=== PATIENT | male | born 1955 | race Caucasian/White ===

== ENCOUNTER 2020-11-09 22:13 | Emergency (ER) | payer BC ==
--- NOTE | 2020-11-09 23:28 | EDM.PDOC ---
ED HPI GENERAL MEDICAL PROBLEM - General Chief Complaint: Abdominal Pain Stated Complaint: OBSTRUCTED BOWEL Time Seen by Provider: 11/09/20 23:10 Source of Information: Reports: Patient, Family () History Limitations: Reports: No Limitations - History of Present Illness INITIAL COMMENTS - FREE TEXT/NARRATIVE: chief complaint: abdominal pain and back pain This is a 64 year old male presents to the ER with abdominal pain- the pain is constant and severe. reports having rock hard stool, today took Dulcolax 5 pills and one enema - nothing working. He called his Family Doctor who advise to go to ER and be scanned to rule out obstruction or diverticulitis. PMHX- chronic low back pain, appy in 1979, pre-diabetes, tobacco use Primary Care Provider- Dr. Balderas, [place], [place] Onset: Today Duration: Hour(s):, Constant, Getting Worse Location: Reports: Abdomen Quality: Reports: Ache, Sharp, Stabbing Severity: Severe Improves with: Reports: None Worsens with: Reports: None Associated Symptoms: Reports: No Other Symptoms Treatments MORTGAGE COUNSELOR: Reports: Other Medication(s) (enema and stool softners) Lower Abdomen Pain Score (Numeric/FACES): 5 - Related Data Allergies Allergy/AdvReac Type Severity Reaction Status Date / Time No Known Allergies Allergy Verified 11/09/20 23:01 Home Meds: Home Meds Losartan [Cozaar] 1 tab PO DAILY 11/09/20 [History] atorvaSTATin [Lipitor] 1 tab PO DAILY 11/09/20 [History] Past Medical History HEENT History: Reports: Impaired Vision Cardiovascular History: Reports: High Cholesterol Genitourinary History: Reports: Chronic Renal Insuffiency Musculoskeletal History: Reports: Back Pain, Chronic Endocrine/Metabolic History: Reports: Diabetes, Type II - Infectious Disease History Infectious Disease History: Reports: Chicken Pox, Measles, Mumps - Past Surgical History GI Surgical History: Reports: Appendectomy, Hernia, Inguinal Social & Family History - Tobacco Use Tobacco Use Status *Q: Current Every Day Tobacco User Years of Tobacco use: 49 Packs/Tins Daily: 1 - Caffeine Use Caffeine Use: Reports: Coffee - Recreational Drug Use Recreational Drug Use: No - Living Situation & Occupation Living situation: Reports: (on vacation - lives in [place], [place]) ED ROS GENERAL - Review of Systems Review Of Systems: See Below Constitutional: Reports: Malaise, Decreased Appetite HEENT: Reports: No Symptoms Respiratory: Reports: No Symptoms Cardiovascular: Reports: No Symptoms Endocrine: Reports: Other (pre-diabetes which is diet controlled.) GI/Abdominal: Reports: Abdominal Pain, Constipation, Decreased Appetite : Reports: No Symptoms Musculoskeletal: Reports: Back Pain (chronic low back pain- which is now worse from trying to have bowel movement. spasam and pain) Skin: Reports: No Symptoms Neurological: Reports: No Symptoms Psychiatric: Reports: No Symptoms Hematologic/Lymphatic: Reports: No Symptoms Immunologic: Reports: No Symptoms ED EXAM, GI/ABD - Physical Exam Exam: See Below Exam Limited By: No Limitations General Appearance: Alert, WD/WN, Severe Distress (laying on the floor in upright position- reports this is a position of comfort for back and abdominal pain), Other (neat and well groomed, pleasant) Eyes: Bilateral: Normal Appearance Ears: Normal External Exam, Normal Canal, Hearing Grossly Normal, Normal TMs Nose: Normal Inspection, Normal Mucosa, No Blood Throat/Mouth: Normal Voice Head: Atraumatic, Normocephalic Neck: Normal Inspection, Supple, Non-Tender, Full Range of Motion Respiratory/Chest: No Respiratory Distress, Lungs Clear, Normal Breath Sounds, No Accessory Muscle Use, Chest Non-Tender Cardiovascular: Normal Peripheral Pulses, Regular Rate, Rhythm, No Edema, No Murmur GI/Abdominal Exam: Distended (firm abdomen to palpation), Tender (generalized pain with palpation), Abnormal Bowel Sounds (hypoactive all quadrants.) (Male) Exam: Deferred Rectal (Males) Exam: Deferred Back Exam: Normal Inspection, Muscle Spasm (low back) Extremities: Normal Inspection, Normal Range of Motion, Non-Tender, Normal Capillary Refill, No Pedal Edema Neurological: No Motor/Sensory Deficits Psychiatric: Normal Affect Skin Exam: Warm, Dry, Intact, Normal Color, No Rash Lymphatic: No Adenopathy Course - Vital Signs Last Recorded V/S: Last Vital Signs Temp 98.1 F 11/09/20 23:00 Pulse 90 11/09/20 23:00 Resp 16 11/09/20 23:00 BP 158/94 H 11/09/20 23:00 Pulse Ox 98 11/09/20 23:00 - Orders/Labs/Meds Orders: Active Orders 24 hr Category Date Time Status Sodium Chloride 0.9% [Normal Saline] 1,000 ml Med 11/09/20 23:30 Active IV ASDIRECTED Medication Orders Sodium Chloride (Normal Saline) 1,000 mls @ 500 mls/hr IV ASDIRECTED AIDE Last Admin: 11/10/20 00:01 Dose: 500 mls/hr Documented by: NUNO Labs: Laboratory Tests 11/09/20 11/09/20 11/09/20 Range/Units 23:20 23:35 23:35 WBC 16.8 H (4.5-11.0) K/uL RBC 4.55 (4.30-5.90) M/uL Hgb 15.1 H (12.0-15.0) g/dL Hct 42.6 (40.0-54.0) % MCV 94 (80-98) fL MCH 33 H (27-31) pg MCHC 35 (32-36) % Plt Count 210 (150-400) K/uL Neut % (Auto) 82.2 H (36-66) % Lymph % (Auto) 10.8 L (24-44) % [place] % (Auto) 6.4 H (2-6) % Eos % (Auto) 0.5 L (2-4) % Baso % (Auto) 0.1 (0-1) % Sodium 136 L (140-148) mmol/L Potassium 3.7 (3.6-5.2) mmol/L Chloride 99 L (100-108) mmol/L Carbon Dioxide 24 (21-32) mmol/L Anion Gap 16.7 H (5.0-14.0) mmol/L BUN 16 (7-18) mg/dL Creatinine 1.2 (0.8-1.3) mg/dL Est Cr Clr Drug Dosing 63.01 mL/min Estimated GFR (MDRD) > 60 (>60) Glucose 131 H (74-106) mg/dL Calcium 8.4 L (8.5-10.1) mg/dL Total Bilirubin 1.0 (0.2-1.0) mg/dL AST 19 (15-37) U/L ALT 27 (12-78) U/L Alkaline Phosphatase 63 (46-116) U/L Total Protein 7.3 (6.4-8.2) g/dL Albumin 4.1 (3.4-5.0) g/dL Globulin 3.2 (2.3-3.5) g/dL Albumin/Globulin Ratio 1.3 (1.2-2.2) Urine Color Yellow (YELLOW) Urine Appearance Clear (CLEAR) Urine pH 5.5 (5.0-8.0) Ur Specific [place] 1.025 (1.008-1.030) Urine Protein Negative (NEGATIVE) mg/dL Urine Glucose (UA) Negative (NEGATIVE) mg/dL Urine Ketones 15 H (NEGATIVE) mg/dL Urine Occult Blood Trace-intact H (NEGATIVE) Urine Nitrite Negative (NEGATIVE) Urine Bilirubin Negative (NEGATIVE) Urine Urobilinogen 1.0 (0.2-1.0) EU/dL Ur Leukocyte Esterase Negative (NEGATIVE) Urine RBC 0-5 (0-5) Urine WBC 0-5 (0-5) Ur Epithelial Cells Rare Amorphous Sediment Few Urine Bacteria Few Urine Mucus Not seen Meds: Medications Generic Name Dose Route Start Last Admin Trade Name Freq PRN Reason Stop Dose Admin Sodium Chloride 1,000 mls @ 500 mls/hr 11/09/20 23:30 11/10/20 00:01 Normal Saline IV 500 mls/hr ASDIRECTED AIDE Administration Discontinued Medications Generic Name Dose Route Start Last Admin Trade Name Freq PRN Reason Stop Dose Admin Hydromorphone HCl 1 mg 11/09/20 23:36 11/09/20 23:57 Hydromorphone 1 Mg/Ml Syringe IVPUSH 11/09/20 23:37 1 mg ONETIME ONE Administration Sodium Chloride 81 mls @ 4 mls/sec 11/10/20 00:04 11/10/20 00:26 Normal Saline IV 11/10/20 00:05 4 mls/sec ASDIRECTED STA Administration Iopamidol 141 ml 11/10/20 00:04 11/10/20 00:26 Iopamidol 612 Mg/Ml 150 Ml Bottle IV 11/10/20 00:05 150 ml . DIRECTED STA Administration - Re-Assessments/Exams Free Text/Narrative Re-Assessment/Exam: 11/09/20 23:33 -IV fluids will do labs and CT scan to rule out any acute abdomen. and Mrs. White agree with plan of care. 11/09/20 23:39 will order IVP Dilaudid 1 mg. for abdominal and back pain 11/10/20 01:55 Constipation -CT abdomen-pelvis- negative for acute abdomen dx constipation -given copy of report and disc for Primary Care Provider -start tonight Miralax colon prep -decline rectal exam for removal of stool -diet high fibre, avoid cheese products -push fluids at least 8 glasses per day -follow up with Primary Care Provider for recheck Return to ER for any increased pain, fever, chills, nausea, vomiting, rash or not improved. Departure - Departure Time of Disposition: 01:57 Disposition: Home, Self-Care 01 Condition: Good Clinical Impression: Acute constipation - Discharge Information *PRESCRIPTION DRUG MONITORING PROGRAM REVIEWED*: Not Applicable *COPY OF PRESCRIPTION DRUG MONITORING REPORT IN PATIENT SIDNEY: Not Applicable Instructions: Constipation, Adult, [id number] Referrals: PCP,None [Primary Care Provider] - Forms: ED Department Discharge Care Plan Goals: Constipation -CT abdomen-pelvis- negative for acute abdomen dx constipation -start tonight Miralax colon prep -diet high fibre, avoid cheese products -push fluids at least 8 glasses per day -follow up with Primary Care Provider for recheck Return to ER for any increased pain, fever, chills, nausea, vomiting, rash or not improved. Sepsis Event Note (ED) - Evaluation Sepsis Screening Result: No Definite Risk - Focused Exam Vital Signs: Vital Signs Temp Pulse Resp BP Pulse Ox 11/09/20 23:00 98.1 F 90 16 158/94 H 98 11/09/20 22:56 98.1 F 90 16 158/94 H 98 - Problem List & Annotations (1) Acute constipation SNOMED Code(s): 215940033 Code(s): K59.00 - CONSTIPATION, UNSPECIFIED Status: Acute Priority: High Current Visit: Yes - Problem List Review Problem List Initiated/Reviewed/Updated: Yes - My Orders Last 24 Hours: My Active Orders 11/09/20 23:30 Sodium Chloride 0.9% [Normal Saline] 1,000 ml IV ASDIRECTED - Assessment/Plan Last 24 Hours: My Active Orders 11/09/20 23:30 Sodium Chloride 0.9% [Normal Saline] 1,000 ml IV ASDIRECTED Plan: Constipation -CT abdomen-pelvis- negative for acute abdomen dx constipation -given copy of report and disc for Primary Care Provider -start tonight Miralax colon prep -diet high fibre, avoid cheese products -push fluids at least 8 glasses per day -follow up with Primary Care Provider for recheck Return to ER for any increased pain, fever, chills, nausea, vomiting, rash or not improved.
[2020-11-09] MEDS ORDERED: Sodium Chloride 0.9% 1,000 ML IV SCH (23:30)
[2020-11-09] MEDS ORDERED: HYDROmorphone 1 MG/ML Syringe IVPUSH ONE (23:36)
[2020-11-10] MEDS ORDERED: Iopamidol 612 MG/ML 150 ML Bottle IV STA (00:04)
--- NOTE | 2020-11-10 01:34 | CRLCT ---
For Patients: As a result of the Century Cures Act, medical imaging exams and procedure reports are released immediately into your electronic medical record. You may view this report before your referring provider. If you have questions, please contact your health care provider. Indication: Constipation, unable to have bowel movements since last Technique: Contrast enhanced axial CT imaging through the abdomen and pelvis. 141 mL Isovue-300 contrast agent was administered intravenously. Sagittal and coronal reconstructions are provided. Comparison: None Findings: The rectum and sigmoid colon are moderately distended with stool. There is mild rectal wall thickening and perirectal edema. Remainder of the colon is unremarkable. There is no small bowel thickening or abnormal distention. No abnormalities are seen relating to stomach. No significant abnormalities are demonstrated relating to the liver, gallbladder, spleen, pancreas, adrenal glands, and kidneys. Scattered splenic calcification is consistent with a benign sequelae of old granulomatous disease. The portal vein is patent. There is extensive atherosclerosis of the abdominal aorta without aortic aneurysm. There is no abdominal or pelvic lymphadenopathy. The urinary bladder is unremarkable. There is bilateral L5 spondylolysis with mild L5-S1 anterolisthesis. The osseous structures are otherwise unremarkable. The included lung bases are clear. Impression: 1. Moderate rectal distention with stool. Mild rectal wall thickening and perirectal edema. Findings are concerning for fecal impaction. Correlate clinically. 2. Incidentally noted bilateral L5 spondylolysis with mild L5-S1 anterolisthesis. Please note that all CT scans at this facility use dose modulation, iterative reconstruction, and/or weight-based dosing when appropriate to reduce radiation dose to as low as reasonably achievable. Dictated by Cyril Delgado MD @ 11/10/2020 1:32:[address] Cyril Delgado @ Nov 10 2020 1:32AM
[2020-11-10] MEDS ORDERED: Polyethylene Glycol 3350 Powder 238 GM Bot PO ONE (01:50)
== END 2020-11-10 02:09 | disposition home or self-care (01) ==
LOC: JP.ED 22:13
DX: K59.00 Constipation, unspecified (principal); E78.00 Pure hypercholesterolemia, unspecified; E11.22 Type 2 diabetes mellitus with diabetic chronic kidney disease; N18.9 Chronic kidney disease, unspecified; Z72.0 Tobacco use; Z79.899 Other long term (current) drug therapy
CPT/HCPCS: 36415; 74177; 80053; 81001; 85025; 96374; 99284; A9270; J1170; J7030; Q9967; 99283